=== PATIENT | female | born 1970 | race Caucasian/White ===

== ENCOUNTER 2025-02-09 19:50 | Emergency (ER) | payer MEDICARE, SELFPAY ==
[2025-02-09] VITALS (13 sets, daily range): BP systolic 194–239; BP diastolic 84–107; PULSE 62–79; RESP 18; TEMP 36.9; O2SAT 97–99; BMI 37.8
--- NOTE | 2025-02-09 20:40 | ED.NAVMDI ---
HPI - Nausea/Vomiting/Diarrhea General Chief complaint: Nausea/Vomiting/Diarrhea Stated complaint: n/v Time Seen by Provider: 02/09/25 20:40 Source: patient and EMS Mode of arrival: EMS History of Present Illness HPI Narrative: patient is a 54-year-old female presenting to the emergency department via EMS for evaluation of nausea vomiting with a past medical history of Arthritis, she states that her a proximally 3 months ago and started using fentanyl to cope with her grief, she states that she was doing this for approximately 3 months states that she was snorting the fentanyl approximately 12-13 times a day, she states that she last used fentanyl 7 days ago but has been intermittently taking some of her friend's oxycodone as well as some of her own Percocet / tramadol, however she states that she is still having some nausea, body aches and chills today. she states that she does not want any help currently she understands that she was coping wrong with her 's she states that her family is with her, states that 1 of them is a magnetic prospecting operator and instructed/recommended that she at least be evaluated here in the emergency department which is the reason why she presented today. She is without any suicidal homicidal ideation. Patient does arrive with son. Related Data Home Medications Medication Instructions Recorded Confirmed duloxetine 60 mg capsule,delayed 90 mg PO DAILY 04/04/24 04/04/24 release tizanidine 4 mg capsule 4 mg PO BEDTIME PRN 04/04/24 04/04/24 tramadol 50 mg tablet 50 mg PO Q6H PRN 04/04/24 04/04/24 trazodone 50 mg tablet 50 mg PO QHS PRN 04/04/24 04/04/24 Allergies Allergy/AdvReac Type Severity Reaction Status Date / Time No Known Drug Allergies Allergy Unverified 04/04/24 09:55 Review of Systems Review of Systems Narrative: General: positive drug abuse, Denies fever, chills, weight loss HEENT: Denies headache, eye drainage, eye irritation, head trauma, sore throat, voice change Cardiovascular: Denies any chest pain, palpitations, tachycardia Respiratory: Denies any shortness of breath, cough, wheeze, stridor GI/: Positive nausea vomiting,Denies any abdominal pain, diarrhea, bright red blood per rectum, melanotic stools, urinary frequency, urinary retention, dysuria, hematuria MSK: Denies any joint pain, muscle pains, swelling Skin: Denies any rashes, lesions, discoloration Neuro: Denies any headache, lightheadedness, dizziness, fainting, weakness Psych: Denies SI/HI Patient History Social History Smoking Status: Current some day smoker Smoking Status: Current some day smoker tobacco type: vaping Exam Narrative Exam Narrative: General: Cooperative, comfortable, well-developed, not in acute distress HEENT: Normocephalic, atraumatic, PERRLA, normal sclera, eyelids normal, Neck: Active full range of motion, atraumatic Chest: Normal to inspection, negative crepitus, no overlying erythema ecchymosis Respiratory: Normal respiratory effort, not in acute respiratory distress, clear to auscultation bilaterally negative cough, wheeze, tachypnea, rhonchi, rales Cardiology: Regular rate rhythm negative gallop, murmur, rubs GI/: Normal to inspection, soft, nonrigid, no tenderness to palpation, exam deferred MSK: Full range of active range of motion of all 4 extremities, atraumatic Skin: No rashes lesions noted Neuro: Alert awake oriented x3, moves all 4 extremities spontaneously, cranial nerves intact, able to answer all questions appropriately follows commands appropriately Psych: Cooperative, negative suicidal or homicidal ideations Initial Vital Signs Initial Vital Signs: Vital Signs Temperature 98.5 F 02/09/25 19:57 Pulse Rate 62 02/09/25 19:57 Respiratory Rate 18 02/09/25 19:57 Blood Pressure 194/91 H 02/09/25 19:57 Pulse Oximetry 99 02/09/25 19:57 Oxygen Delivery Method Room Air 02/09/25 19:57 Course Orders Ordered: ED Orders 02/09/25 20:00 Complete Blood Count AUTO DIFF Stat Comprehensive Metabolic Panel Stat Lipase Stat MAG [Magnesium] Stat 02/09/25 20:55 Urine Drug Screen, Rapid Stat Ondansetron HCl (Ondansetron 4 Mg/2 Ml Inj) 4 mg IV NOW PRN PRN Reason: Nausea And Vomiting Ondansetron HCl (Ondansetron 4 Mg Odt) 4 mg SL NOW PRN PRN Reason: Nausea And Vomiting Discontinued Medications Acetaminophen (Acetaminophen 325 Mg Tablet) 650 mg PO NOW ONE Stop: 02/09/25 22:02 Clonidine HCl (Clonidine 0.1 Mg Tablet) 0.1 mg PO NOW ONE Stop: 02/09/25 22:02 Sodium Chloride (Normal Saline 0.9%) 1,000 mls @ 1,000 mls/hr IV BOLUS ONE Stop: 02/09/25 21:54 Last Admin: 02/09/25 21:10 Dose: 1,000 mls/hr Ondansetron HCl (Ondansetron 4 Mg/2 Ml Inj) 4 mg IV NOW ONE Stop: 02/09/25 20:56 Last Admin: 02/09/25 21:10 Dose: 4 mg Vital Signs Vital signs: Vital Signs - 8 hr 02/09/25 19:57 02/09/25 20:01 Temperature 98.5 F Pulse Rate 62 69 Respiratory Rate 18 Blood Pressure 194/91 H Pulse Oximetry 99 99 Oxygen Delivery Method Room Air MDM - Nausea/Vomiting/Diarrhea Differential Diagnosis Differential diagnosis: Likely gastroenteritis, drug-induced nausea and vomiting, dehydration and other ( opioid withdrawal, electrolyte abnormality, drug abuse) Lab Data 02/09/25 20:00 02/09/25 20:00 Labs: Lab Results 02/09/25 Range/Units 20:00 WBC 13.8 H (4.5-11.0) X10^3/uL RBC 4.95 (4.0-5.2) X10^6/uL Hgb 15.2 (12.0-16.0) g/dL Hct 43.9 (36-46) % MCV 88.7 (80-100) fL MCH 30.6 (26-34) PG MCHC 34.5 (30-36) % RDW 13.1 (11.6-14.8) % Plt Count 426 H (150-400) X10^3/uL Neut % (Auto) 91.0 H (50-75) % Lymph % (Auto) 5.5 L (25-40) % [place] % (Auto) 1.6 L (3-14) % Eos % (Auto) 1.6 L (2-4) % Baso % (Auto) 0.3 (0-2) % Neut # (Auto) 13185 H (8897-1173) /uL Lymph # (Auto) 800 L (4190-9212) /uL [place] # (Auto) 200 (0-900) /uL Eos # (Auto) 200 (0-450) /uL Baso # (Auto) 0 (0-100) /uL Sodium 136 L (137-145) mmol/L Potassium 4.6 (3.4-5.1) mmol/L Chloride 96 L (98-107) mmol/L Carbon Dioxide 27 (22-32) mmol/L BUN 21 H (7-17) mg/dL Creatinine 0.60 (0.52-1.04) mg/dL Estimated GFR > 60 (>60) mL/min BUN/Creatinine Ratio 35.0 H (6-22) Glucose 149 H (70-100) mg/dL Calcium 10.6 H (8.4-10.2) mg/dL Magnesium 2.1 (1.6-2.3) mg/dL Total Bilirubin 0.6 (0.2-1.3) mg/dL AST 28 (14-36) IU/L ALT 26 (<35) IU/L Alkaline Phosphatase 82 (38-126) U/L Total Protein 8.6 H (6.3-8.2) g/dL Albumin 5.0 (3.5-5.0) g/dL Globulin 3.6 (1.7-4.1) g/dL Albumin/Globulin Ratio 1.4 (1.0-2.8) Lipase 33 (23-300) U/L MDM Narrative Medical decision making narrative: patient is a 54-year-old female who presents for possible opioid withdrawal. She states that she does have a history of chronic pain for arthritis states that she normally takes Percocets and tramadol for this, however she states that 3 months ago her and went down the wrong path she states that she started doing fentanyl, sniffing at 12:13 p.m. times a day for the past 3 months, however she states that she stopped cold turkey 1 week ago. She states that she was intermittently taking her Percocets and her tramadol to help with her withdrawal but still having some nausea vomiting and body chills. At time of evaluation patient with a cows score of 4. she denies any actual headache visual disturbances chest pain shortness of breath fever abdominal pain. States that she only has some cramping to her abdomen whenever she feels like she needs to throw up. She states that she has not thrown up in the past 2-3 days. She states that she does not have any suicidal or homicidal ideation, she states that she does not want to talk to social work she states that she knows she messed up and is only here because 1 of her family members as a magnetic prospecting operator and recommended that she at least be evaluated in the emergency department. Patient did have lab work performed here, WBC of 13.8, creatinine 0.60, GFR greater than 60, BUN 35, glucose 149. Patient did have improvement of her symptoms after administration of fluids and Zofran, tylenol and 0.1 of clonidine. Patient not actively in withdrawal did instruct the patient to follow up with primary care doctor was given strict return precautions she verbalized understanding of this and agrees to being discharged home with outpatient follow up. She will be sent home with prepack of [place] for her symptoms Discharge Plan Departure Patient Disposition: Home Clinical Impression: Mild fentanyl abuse Instructions: DI for Substance Use Disorder Activity Restrictions/Additional Instructions: please follow up with your primary care doctor Please read the discharge instructions sheet carefully and bring all papers to all doctor follow-up visits, as it may contain information that your doctor may want to see. Disease processes change and evolve, if your symptoms worsen or if you develop any new symptoms that are concerning to you please return for evaluation. Your evaluation today does not show any evidence of any life-threatening/serious illnesses requiring admission to the hospital or surgery. Please follow-up with your doctor for re-evaluation in approximately 1 day. Seek immediate medical attention for any worrisome symptoms. *If you do not have a primary care provider please contact the [facility] Resource line at [phone]. They will ask some questions about your medical history and help get you set up with a doctor in the community. Prescriptions: No Action trazodone 50 mg tablet 50 mg PO QHS PRN tramadol 50 mg tablet 50 mg PO Q6H PRN duloxetine 60 mg capsule,delayed release(DR/EC) 90 mg PO DAILY tizanidine 4 mg capsule 4 mg PO BEDTIME PRN Referrals: Miscellaneous,Doctor, MD [Primary Care Provider] - Stand Alone Forms: Patient Portal/API/Survey
[2025-02-09] MEDS: SODIUM CHLORIDE 0.9% 1,000 ML 1000 ML IV (21:10)
[2025-02-09] MEDS: ONDANSETRON 4 MG/2 ML INJ IV (21:10)
[2025-02-09 21:13] LABS: Alanine Aminotransferase 26 IU/L (<35); Albumin Globulin Ratio 1.4 (1.0-2.8); Alkaline Phosphatase 82 U/L (38-126); Aspartate Aminotransferase 28 IU/L (14-36); Bilirubin Total 0.6 mg/dL (0.2-1.3); Blood Urea Nitrogen 21 mg/dL (7-17); Calcium 10.6 mg/dL (8.4-10.2); Carbon Dioxide 27 mmol/L (22-32); Chloride 96 mmol/L (98-107); Estimated Glomerular Filt Rate > 60 mL/min (>60); Globulin 3.6 g/dL (1.7-4.1); Glucose 149 mg/dL (70-100); HEMOLYSIS 24 (0-50); Lipase 33 U/L (23-300); Magnesium 2.1 mg/dL (1.6-2.3); Potassium 4.6 mmol/L (3.4-5.1); Sodium 136 mmol/L (137-145); Total Protein 8.6 g/dL (6.3-8.2)
[2025-02-09 21:19] LABS: Add Manual Diff / Slide Review NO; Basophils Absolute Auto 0 /uL (0-100); Basophils Percent Auto 0.3 % (0-2); Eosinophils Absolute Auto 200 /uL (0-450); Eosinophils Percent Auto 1.6 % (2-4); Hematocrit 43.9 % (36-46); Hemoglobin 15.2 g/dL (12.0-16.0); Lymphocytes Absolute Auto 800 /uL (1100-4500); Lymphocytes Percent Auto 5.5 % (25-40); Mean Corpuscular HGB Conc 34.5 % (30-36); Mean Corpuscular Hemoglobin 30.6 PG (26-34); Mean Corpuscular Volume 88.7 fL (80-100); Monocytes Absolute Auto 200 /uL (0-900); Monocytes Percent Auto 1.6 % (3-14); Neutrophils Absolute Auto 12600 /uL (1500-7000); Platelet Count 426 X10^3/uL (150-400); Red Blood Cell Count 4.95 X10^6/uL (4.0-5.2); Red Cell Distribution Width 13.1 % (11.6-14.8); White Blood Cell Count 13.8 X10^3/uL (4.5-11.0)
[2025-02-09] MEDS: cloNIDine 0.1 MG TABLET PO (22:25)
[2025-02-09] MEDS: ACETAMINOPHEN 325 MG TABLET 650 MG PO (22:26)
[2025-02-09 22:29] LABS: UR Morphine/Opiate cutoff 300 Negative (Negative); Ur Creatinine Normal (Normal); Ur Specific Gravity Normal (Normal); Urine Amphetamines Negative (Negative); Urine Cocaine Negative (Negative); Urine Methamphetamines Negative (Negative); Urine Tetrahydrocannabinol Negative (Negative); Urine pH Normal (Normal)
[2025-02-09 22:30] LABS: Urine Barbiturates Negative (Negative); Urine Benzodiazepines Positive (Negative); Urine MDMA Negative (Negative); Urine Methadone Negative (Negative); Urine Oxycodone Positive (Negative); Urine Phencyclidine Negative (Negative); Urine Tricyclic Antidepressant Negative (Negative)
== END 2025-02-09 22:37 | disposition home or self-care (01) ==
PROVIDERS: Emergency Provider Student in an Organized Health Care Education/Training Program
DX: F11.10 Opioid abuse, uncomplicated (principal); R11.2 Nausea with vomiting, unspecified; Z63.4 Disappearance and death of family member
CPT/HCPCS: 36415; 80053; 80305; 83690; 83735; 85025; 96361; 96374; 99284; J2405